=== PATIENT | female | born 1980 | race Caucasian/White ===

== ENCOUNTER 2018-09-03 00:17 | Emergency (ER) | payer SELFPAY ==
[~2018-09-03] VITALS: Ht 160 cm; Wt 68.0 kg
[2018-09-03 00:21] VITALS: BP_SYST 133
--- NOTE | 2018-09-03 00:21 | NUR ---
Patient to ER CHAIR to [facility] for evaluation. Side rails up. Report given to ILDEFONSO MARRERO.
--- NOTE | 2018-09-03 00:25 | NUR ---
Patient to ER via [facility] for evaluation of abscess to bilateral elbows. Patient arrives in custody of [facility], able to ambulate without difficulty with slow, steady gait. Patient arrives in handcuffs. Patient is awake, alert and oriented in no acute distress, vital signs stable, respirations even and unlabored, skin warm and dry to touch. Awaiting evaluation by ER MD, will continue to observe and assess.
[2018-09-03] MEDS ORDERED: SULFAMETHOXAZOLE/TRIMETHOPR DS 1 TABLET PO ONE (00:30)
[2018-09-03] MEDS ORDERED: CEPHALEXIN 500 MG CAPSULE PO ONE (00:30)
--- NOTE | 2018-09-03 00:30 | NUR ---
LING Webber at bedside examining patient.
[2018-09-03 00:45] VITALS: BP_SYST 126
--- NOTE | 2018-09-03 00:45 | NUR ---
Patient given written and verbal discharge instructions and verbalizes understanding. ER MD discussed with patient the results and treatment provided. Patient in stable condition. ID arm band removed. Rx of Keflex, Bactrim DS given. Patient educated on pain management and to follow up with PMD. Pain Scale 0. Opportunity for questions provided and answered. Medication side effect fact sheet provided. Patient left ER in no acute distress, able to ambulate without difficulty with slow, steady gait. Patient remains in custody of [facility] and left ER in handcuffs, no adverse reaction noted to medication.
== END 2018-09-03 00:45 ==
LOC: SED 00:17
DX: L02.414 Cutaneous abscess of left upper limb (principal); L02.413 Cutaneous abscess of right upper limb; F15.90 Other stimulant use, unspecified, uncomplicated; F17.200 Nicotine dependence, unspecified, uncomplicated
CPT/HCPCS: 99283

== ENCOUNTER 2023-06-23 11:32 | Emergency (ER) | payer MEDICAID ==
[~2023-06-23] VITALS: Ht 160 cm; Wt 81.6 kg
[2023-06-23 11:51] VITALS: BP_SYST 127; PULSE 97; RESP 18; TEMP 97.8; O2SAT 98
[2023-06-23 12:06] VITALS: BP_SYST 127; PULSE 97; RESP 18; TEMP 97.8; O2SAT 98
== END 2023-06-23 12:07 ==
LOC: SED 11:32
DX: F31.9 Bipolar disorder, unspecified (principal); F15.90 Other stimulant use, unspecified, uncomplicated; F17.200 Nicotine dependence, unspecified, uncomplicated; Z59.00 Homelessness unspecified
CPT/HCPCS: 99283